=== PATIENT | female | born 1960 | race Caucasian/White ===

== ENCOUNTER 2018-05-05 09:14 | Outpatient (CLI) | payer OTHER ==
--- NOTE | 2018-05-05 13:40 | Diagnostic Imaging Report ---
VISHAL WAGGONER [facility] [address] [facility] [address] [place] [address]. [id number] Report Submission Date: May 05, 2018 1:37:54 PM CDT Patient Study Name: TRICIA ROBERTS Date: May 05, 2018 9:42:07 AM CDT Modality Type: CT\SR Gender: F Description: CT BRAIN W W/O CON : 56 Institution: [facility] Physician: VISHAL WAGGONER Head CT with and without contrast History: Left-sided weakness. Speech difficulty for 1 week Technique: Axial images were obtained from the skullbase to the vertex with and without IV contrast. There are no comparison studies. No areas of abnormal contrast enhancement are noted. The lateral ventricles are dilated. The 3rd and 4th ventricles are normal in caliber. A mild noncommunicating hydrocephalus would not be excluded. However, no intraventricular masses are noted. There is no shift of midline. There is relatively poor corticomedullary distinction involving the bitemporal and bifrontal lobes with no identifiable sulci in these locations when compared with the parietal lobes. Cerebral edema involving the bifrontal and bitemporal lobes would not be excluded. There is no intra or extra-axial hemorrhage. Paranasal sinuses and mastoid air cells are clear. The calvarium is intact. Impression: The lateral ventricles are prominent bilaterally but the 3rd and 4th ventricles are normal in caliber. A mild noncommunicating hydrocephalus would not be excluded. Additionally, there is poor corticomedullary distinction and a lack of sulcation involving the bilateral temporal and frontal lobes. Brain swelling/cerebral edema in these locations would not be excluded. Consider MRI for further assessment with regard to these abnormalities. No intracranial hemorrhage. No abnormal enhancement. Electronically signed on May 05, 2018 1:37:54 PM CDT by: Tricia DOLAN
== END 2018-05-05 13:22 ==
LOC: RAD 09:14
PROVIDERS: ATTEND Family Medicine
DX: R53.1 Weakness (principal); R47.01 Aphasia; Z86.79 Personal history of other diseases of the circulatory system
CPT/HCPCS: 70470; Q9967